=== PATIENT | male | born 1990 | race Hispanic/Latino ===

== ENCOUNTER 2019-04-30 04:36 | Inpatient (IN) | payer OTHER ==
[~2019-04-30] VITALS: Ht 188 cm; Wt 96.6 kg
--- NOTE | 2019-04-30 08:52 | NUR ---
MED REC COMPLETE
--- NOTE | 2019-04-30 10:44 | NUR ---
HAS COMPLETED HIBICLENS SHOWER AND IS HOOKED UP TO IVF. SIGINIFICANT OTHER AT BEDSIDE, BUT GONE NOW.
--- NOTE | 2019-04-30 11:00 | NUR ---
Spoke with Dre and Vielka. They live in [place]. Pt denies use of DME. Plans on dc to home after appy surgery and criteria is met with Vielka.
--- NOTE | 2019-04-30 12:04 | NUR ---
PATIENT DENIES PAIN. IVF INFUSING.
--- NOTE | 2019-04-30 13:28 | NUR ---
PT ALERT, ORIENTED AND SUPPORTED BY HIS SIG. OTHER. PT IS NPO, WAITING FOR LAP APPY LATER TODAY. FIRST SURGERY, HELPED PT UNDERSTAND WHAT HE COULD EXPECT. PT ACKNOWLEDGED, THANKED ME AND REQUESTED PRAYER. WILL FOLLOW NEEDED
--- NOTE | 2019-04-30 13:56 | NUR ---
PT IS OFF THE FLOOR TO SURGERY. FAMILY WENT WITH HIM TO DAY SURGERY WAITING AREA. IV OFF PUMP, PRE OP ABX HANGING WITH IVF. SCD SLEVES ON. PT VOIDED PRIOR TO LEAVING FLOOR. VITALS TAKEN.
--- NOTE | 2019-04-30 15:55 | NUR ---
04/30/19 1553 Praveen Flores REORIENTED PT TO TIME AND SITUATION. REPORTS 0/10 ABD PAIN
--- NOTE | 2019-04-30 16:51 | NUR ---
PT HAS RETURNED FROM SURGERY. ON CPOX PER POLICYHOLDER INFORMATION CLERK RECOMMENDATION. MAINTAINING LOW 90'S ON 2L. PT REPORTS MINIMAL PAIN 03/09. PT READY TO VOID. GAVE WATER AND JELLO.
--- NOTE | 2019-04-30 18:03 | NUR ---
PT REQUESTED PAIN MEDICATION. PAIN INCREASED LOCAL WORE OFF. TOLERATING JELLO WELL, VOIDING WELL. NO NAUSEA.
--- NOTE | 2019-04-30 19:27 | NUR ---
recieved report from day shift. pt in bed, was using urinal. needed some privacy. will be back for assessment.
--- NOTE | 2019-04-30 20:51 | NUR ---
PT IN BED, VSS, AFEBRILE. 2 OFF, SPO2 92% ON RA.
--- NOTE | 2019-04-30 21:30 | NUR ---
PT CALLED REQUESTED TO GET UP AND WALK TO BATHROOM. ASSIST, SBA, DENIED DIZZINESS WHEN UP, OR WHEN WALKING. USED URINAL, BRUSHED TEETH, WASHED FACE. BACK TO BED WITH SBA, TOLERATED WELL STATED HE FELT PRETTY GOOD GETTING UP AND WALKING. ASKED PT IF HE HAD A JOB THAT WOULD NEED A RELEASE FROM DUE TO SURGERY, STATED NO, HE IS MOVING TO [place] TO A JOB AND IT WILL BE AN OFFICE JOB. EDUCATED ABOUT THE CONCERNS WITH LIFING. STATED UNDERSTANDING. ALL PERSONAL ITEMS WITHIN REACH, CALL LIGHT. CPOX IN PLACE, 95 ON RA.
--- NOTE | 2019-04-30 22:23 | NUR ---
PT'S ASSESSMENT COMPLETE. DRESSING IS DRY, CLEAN, INTACT. PT REQUESTED TO TURN LIGHT OFF. REPORTED INCREASED PAIN WITH ACTIVITY. PRN TYLENOL WAS OFFERED BUT PT STATED HE CAN WAIT UNTIL MIDNIGHT.
--- NOTE | 2019-04-30 23:17 | NUR ---
EYES CLOSED, PT APPEARS ASLEEP. SPO2 92% ON RA.
--- NOTE | 2019-04-30 23:51 | NUR ---
PT REPORTED PAIN 10. SEE MAR FOR ADMINISTERED MEDICATION. JELLO WAS OFFERED, PT TOLERATED WELL. SPO2 94% ON RA.
--- NOTE | 2019-05-01 00:30 | NUR ---
PT RESTING IN BED WITH EYES CLOSED. APPEARS COMFORTABLE. SPO2 93% ON RA.
--- NOTE | 2019-05-01 02:51 | NUR ---
PT'S ASSESSMNET COMPLETE. PT STATED HIS PAIN IS 'NOT TOO BAD'. REFUSED TO TAKE ANALGETIC. VS WNL. AFEBRILE. RESTING WITH HIS EYES CLOSED.
--- NOTE | 2019-05-01 02:56 | NUR ---
PT AMBULATED TO THE BATHROOM. VOIDED WITHOUT DIFFICULTIES.
--- NOTE | 2019-05-01 03:03 | NUR ---
pt back in bed. ice pack provided. scds on. bed in low position, call light in reach.
--- NOTE | 2019-05-01 04:43 | NUR ---
PT ALERT, ORIENTED X4, COOPERATIVE WITH ALLCARES. REPORTED PAIN ONCE DURING THI SHIFT AFTER AMBULATING AROUND THE UNIT. SEE MAR FOR ADMINISTERED PRN MEDICATION. USED ICE PACK ALTERNATIVE FOR PAIN MANAGEMENT. PT MAINTAINES SPO2 93-95% ON RA, GOOD PROGRESS. VSS, AFEBRILE. DRESSINGS ARE DRY, CLEAN, INTACT. PT VOIDED WITHOUT DIFFICULTIES. TOLERATED JELLO WELL. CONTINUES D5LR 100ML/HOUR THROUGH RIGHT AC PERIPHERAL LINE WITH 20 GA. IV SITE WAS FLASHED WITH NC, PATENT. DRESSING INTACT. RESTING IN BED WITH EYES CLOSED, APPEARS ASLEEP AND COMFORTABLE. BED IN LOW POSITION, CALL LIGHT IN REACH.
--- NOTE | 2019-05-01 05:45 | OR ---
[facility] [address], [place] [address] Signed DATE OF OPERATION: 04/30/2019 SURGEON: Romy Bernal MD PREOPERATIVE DIAGNOSIS: Acute appendicitis. POSTOPERATIVE DIAGNOSIS: Acute suppurative appendicitis. PROCEDURE: Laparoscopic appendectomy. ESTIMATED BLOOD LOSS: None. INDICATIONS: Dre is a 28-year-old gentleman who for about half-a-day had left upper quadrant abdominal pain that then localized to the right lower quadrant. He finally came to emergency room because of the unrelenting pain. He was tender in the right lower quadrant with an elevated white blood cell count. CT scan confirmed appendicitis without abscess. He was given cefepime and Flagyl, IV fluids and some pain control. I was asked to admit him as a general surgeon on-call. I met with Dre and his girlfriend in the hospital. They have already been online reading and they are very familiar with the location and function of the appendix. We had discussed laparoscopic versus open appendectomy. We reviewed the expected intraop and postop course. We also reviewed risks including, but not limited to bleeding, infection, scarring, change in contour of the skin, damage to bowel, appendiceal stump leak, postoperative intraabdominal abscess, incisional hernias, and other unforeseen comorbidities. They had expressed understanding and wished to proceed. PROCEDURE NOTE: Dre was taken into our operating room and placed in supine position under general endotracheal tube anesthesia. He had gone to the bathroom just prior to going in the operating room. Therefore, no Perkins catheter was needed. He was already on preoperative antibiotics. He was given 5000 units of heparin subcu. SCDs were utilized. He was then prepped and draped in the usual sterile fashion. All trocars were placed in usual positions under direct visualization of camera without difficulty. The appendix was grasped and elevated in the right upper quadrant. The base of the appendix was cleared off and divided from the cecum with the help of a linear stapler. Electronically Signed By: ROMY BERNAL MD 05/01/19 0545 PATIENT NAME: DRE FORTUNE OPERATIVE REPORT DATE OF : 86 REPORT #: [id number] PHYSICIAN: ROMY BERNAL MD PCP: RUCHI MAIN PA-C REPORT IS CONFIDENTIAL AND NOT TO BE RELEASED WITHOUT AUTHORIZATION [facility] [address], [place] [address] Signed We used two vascular loads to divide the mesoappendix. There was some bleeding on two spots on the staple line on the mesoappendix and they were gently cauterized. After this, the right lower quadrant was irrigated and suctioned out until clear. No further bleeding noted. We then placed the appendix into an EndoCatch bag and took it out through the right subcostal trocar site. We used our laparoscopic suturing device to pass 0 Vicryl suture on either side of the fascia of the subxiphoid trocar site. This was tied down to close this fascia primarily. After this, all the gas was allowed to escape and all the remaining trocars were removed. We closed the fascia of the supraumbilical trocar site with interrupted [id number] and simple 0 Vicryl sutures. Local anesthetic was copiously injected into all trocar sites. The skin and dermis of each trocar site were closed with interrupted 3-0 subcuticular Monocryl sutures. Dry gauze and tape were applied to all incisions. Dre was awakened from anesthesia, extubated in the OR, and taken to recovery room in stable condition. Romy Bernal MD ALB/MODL /[id number] cc: MD Ruchi Sim PA Copies: ROMY BERNAL MD ~ Electronically Signed By: ROMY BERNAL MD 05/01/19 0545 PATIENT NAME: DRE FORTUNE OPERATIVE REPORT DATE OF : 86 REPORT #: [id number] PHYSICIAN: ROMY BERNAL MD PCP: RUCHI MAIN PA-C REPORT IS CONFIDENTIAL AND NOT TO BE RELEASED WITHOUT AUTHORIZATION
--- NOTE | 2019-05-01 05:45 | CONS ---
[facility] [address], [place] [address] Signed DATE OF CONSULTATION: 04/30/2019 CHIEF COMPLAINT: Right lower quadrant abdominal pain. HISTORY OF PRESENT ILLNESS: Dre is a 28-year-old young man, who is otherwise healthy. He is involved in our local drone industry. However, he is currently unemployed. He said he is headed for a job interview at the end of this week in [place]. Twelve or so hours ago, he started to develop left upper quadrant abdominal pain and it has worked its way down to the right lower quadrant. He has had nausea, but no vomiting. The pain was unrelenting, so he came to the emergency room for evaluation. He was tender in the right lower quadrant with an elevated white blood cell count. CT scan of abdomen and pelvis confirmed his thickened inflamed appendix without abscess or perforation. I was asked to admit him as a general surgeon on-call. In the meantime, he has received his cefepime and Flagyl along with some IV fluids and pain medication. He said overall he feels a little better. He is lime vat tender in the right lower quadrant. PAST MEDICAL HISTORY: Right 3rd metatarsal fracture. PAST SURGICAL HISTORY: Alsen teeth extraction without bleeding. SOCIAL HISTORY: He does not smoke. He has a drink up to four times a week. He has been with his lifelong partner. Ruchi Brown is his physician's engineer second assistant. He is currently unemployed but does drive. He prefers the [facility]. FAMILY HISTORY: Mom had diabetes and cervical cancer. Paternal grandmother had colon cancer and diabetes. He is unaware of his dad's history. REVIEW OF SYSTEMS: He had 10 systems reviewed. He talked to me about the foot fracture. ALLERGIES: None. MEDICATIONS: None. PHYSICAL EXAMINATION: Electronically Signed By: ROMY BERNAL MD 05/01/19 0545 PATIENT NAME: DRE FORTUNE CONSULTATION DATE OF : 86 REPORT #: [id number] PHYSICIAN: ROMY BERNAL MD PCP: RUCHI BROWN PA-C REPORT IS CONFIDENTIAL AND NOT TO BE RELEASED WITHOUT AUTHORIZATION [facility] [address], [place] [address] Signed VITAL SIGNS: Blood pressure is 119/73, heart rate 105, respiratory rate 18, temperature is 98.3, 96% on room air. He is 6 feet 2 inches tall at 96 kg. GENERAL: Dre is a 28-year-old gentleman who appears generally healthy and at his stated age. He appears alert, awake, and interactive. He does not appear systemically ill or toxic. His friend is with him in the room. LUNGS: Clear to auscultation. HEART: Regular rate and rhythm. ABDOMEN: Soft and flat, but he is tender in the right lower quadrant, just slightly below McBurney point. LABORATORY DATA: His white blood cell count is 13.6, hemoglobin 17, neutrophils 88, creatinine 1.12. Liver function test is negative. Lipase negative. Urine specific gravity negative. Albumin is 4.5. RADIOGRAPHIC STUDIES: A CT scan of the abdomen and pelvis is reviewed. You can see his inflamed thickened appendix in the right lower quadrant without abscess. ASSESSMENT AND PLAN: Dre is a 28-year-old gentleman who presents with acute appendicitis. They have already been online reading and they are very aware of the location and function of the appendix. We have discussed laparoscopic versus open appendectomy. We have discussed the expected intraop and postop course. There is risk to surgery including, but not limited to bleeding, infection, scarring, change in contour of the skin, damage to bowel, appendiceal stump leak, postoperative intraabdominal abscess, incisional hernias and other unforeseen comorbidities. They have expressed understanding and would like to proceed with surgery. Romy Bernal MD ALB/MODL /[id number] cc: MD Ruchi Sim PA Electronically Signed By: ROMY BERNAL MD 05/01/19 0545 PATIENT NAME: DRE FORTUNE CONSULTATION DATE OF : 86 REPORT #: [id number] PHYSICIAN: ROMY BERNAL MD PCP: RUCHI BROWN PA-C REPORT IS CONFIDENTIAL AND NOT TO BE RELEASED WITHOUT AUTHORIZATION [address] [place] [address] Signed Copies: ROMY BERNAL MD ~ Electronically Signed By: ROMY BERNAL MD 05/01/19 0545 PATIENT NAME: DRE FORTUNE CONSULTATION DATE OF : 86 REPORT #: [id number] PHYSICIAN: ROMY BERNAL MD PCP: RUCHI BROWN PA-C REPORT IS CONFIDENTIAL AND NOT TO BE RELEASED WITHOUT AUTHORIZATION
--- NOTE | 2019-05-01 06:09 | NUR ---
pt BACK IN BED AFTER VOID. RATES PAIN 6/10 IN ABDOMEN. STATES "I DON'T THINK JUST THE ONE PILL WORKED". PRN PAIN MEDICATIONS ADMINISTERED. VSS. IVF INFUSING WNL ORDERED. CALL LIGHT IN REACH. ICE PACK TO ABDOMEN. NO ADDITIONAL REQUESTS.
--- NOTE | 2019-05-01 07:16 | NUR ---
BEDSIDE REPORT FROM ATA CHO... PT SITTING UP IN BED ALERT, DISCUSSED PLAN OF CARE FOR THE DAY WITH PATIENT. HE RPORTS PAIN IS MANAGEABLE AT THIS TIME. NO CONCERNS OTHER THAN HOPEING TO DISCHARGE TODAY.
--- NOTE | 2019-05-01 08:12 | NUR ---
PATIENT AWAKE IN BED. DIET WAS SWITCHED TO FULL LIQUID SO WE ORDERED BREAKFAST. HE DOES NOT NEED ANYTHING ELSE AT THIS TIME. CALL LIGHT IN REACH.
--- NOTE | 2019-05-01 09:24 | NUR ---
PT REPORTS HIS PAIN IS VERY MILD 1-2/10 TOLERABLE AT THIS TIME AT REST. HE IS SITTING UP EATING FULL LIQUID DIET TOLERATING WELL NO NAUSEA. HE REQUESTED COFFEE. HIS ASSESSMENT IS WNL, SURGERY SITES X3 CDI. FRESH ICE PACK, AND COFFEE PROVIDED. PT VERBALIZED WANT TO DISCHARGE TODAY IF POSSIBLE. ADMINISTERED FLU QUAD VACINE WELL PER PT REQUEST.
--- NOTE | 2019-05-01 11:10 | NUR ---
Spoke with Stas, he is walking in his room and preparing to walk in the ch. States he thinks he gets to go home today. He is not sure as has not told him for sure yet. Denies needs or concerns.
--- NOTE | 2019-05-01 11:39 | NUR ---
CALLED TO REQUEST TO ADVANCE PT DIET, PT TOLERATING FULL LIQUID WELL, PASSING GAS AND AMBULATING HALLS. NEW ORDER FOR REGULAR DIET
--- NOTE | 2019-05-01 13:51 | NUR ---
CALLED TO UPDATE ON PT STATUS AND INFORM THAT PT IS ANTICIPATING DISCHARGE TODAY. HE GAVE ORDER TO DISCHARGE AND HE WILL SEND MEDICATIONS ELECTRONICALLY TO [facility]
--- NOTE | 2019-05-01 14:03 | NUR ---
DRESSINGS REMOVED X3. ALL INCISIONS WELL PROXIMATED, NO NEW DRAINAGE. NEW GAUZE PLACED LIGHTLY WITH SMALL AMOUNT OF FOAM TAPE. TO SEND RXD TO [facility].
--- NOTE | 2019-05-01 14:25 | NUR ---
PT READY FOR DC-WAITING FOR RIDE. FEELING MUCH BETTER, AND LOOKING FORWARD TO SLEEPING IN HIS BED TONIGHT. EXTENDED A BLESSING, WILL FOLLOW NEEDED
--- NOTE | 2019-05-01 14:40 | NUR ---
PT EDUCATIONS PROVIDED WITH DICHARGE PACKET. SIGNIFICANT OTHER IN ROOM FOR EDUCATION, KEEP INCISIONS CLEAN/DRY. OK TO SHOWER, NO LIFTING GREATER THAN 20LBS UNTIL FOLLOW UP WITH IN ONE WEEK. EDUCATIONS PROVIDED FOR NORCO LAST DOSE NEXT DOSE, SIDE EFFECTS, INSTRUCTED PT TO WALK AND DRINK WATER OFTEN TO PREVENT CONSTIPATION. PT GIVEN EXTRA GAUZE AND ICE PACK FOR HOME.
--- NOTE | 2019-05-02 15:10 | PATH ---
[facility] [address], [place] [address] Signed SPECIMEN(S): A APPENDIX SPECIMEN SOURCE: A. APPENDIX CLINICAL HISTORY: Acute appendicitis. FINAL PATHOLOGIC DIAGNOSIS: Appendix, appendectomy: - Acute appendicitis with periappendicitis. NAL:smn:C2NR MICROSCOPIC EXAMINATION: Histologic sections of all submitted blocks are examined by light microscopy. These findings, together with the gross examination, support the pathologic diagnosis. GROSS DESCRIPTION: The specimen, labeled "JG, appendix," per requisition, is received in formalin and consists of: Specimen: Appendix with mesoappendix. Dimensions: 11.0 x 2.6 x 1.9 cm. Serosa: Normal. Perforation: Not grossly identified. Inking: Staple line is inked black. Mucosa: Thickened, dilated towards proximal margin. Fecalith: Present with hemorrhagic material. Additional: None. Hvac Mechanical Engineer sections are submitted in cassette (A1). AT(under the direct supervision of a pathologist) The Gross Description was prepared using a voice recognition system. The report was reviewed for accuracy; however, sound-alike word errors, addition and/or deletions may occur. If there is any question about this report, please contact Client Services. PERFORMING LABORATORY: The technical component was performed by [facility], [address] [place] [id number] ([employer]: Sushma Arora MD; CLIA# [id number]). [facility], [address] [address] (CLIA# PATIENT NAME: LIBERTAD FORTUNE PATHOLOGY DATE OF : 86 REPORT #: [id number] PHYSICIAN: PRERNA PATHOLOGY PCP: MING MAIN PA-C REPORT IS CONFIDENTIAL AND NOT TO BE RELEASED WITHOUT AUTHORIZATION [facility] [address] [place] [id number] Signed [id number]). Diagnostician: Nelsy Coronel MD Pathologist Electronically Signed 05/02/2019 Copies: ~ PATIENT NAME: LIBERTAD FORTUNE PATHOLOGY DATE OF : 86 REPORT #: [id number] PHYSICIAN: PRERNA PATHOLOGY PCP: MING MAIN PA-C REPORT IS CONFIDENTIAL AND NOT TO BE RELEASED WITHOUT AUTHORIZATION
== END 2019-05-01 14:50 | disposition home or self-care (01) | DRG 343 ==
LOC: EDSEX 04:36 → ED 04:36 → MS 04:37
PROVIDERS: ADMIT Colon & Rectal Surgery
PROC: 0DTJ4ZZ Resection of Appendix, Percutaneous Endoscopic Approach (ICD-10-PCS; principal; 2019-04-30 17:00)
DX: K35.80 Unspecified acute appendicitis (principal)
CPT/HCPCS: 00840; 36415; 74177; 80048; 80053; 81001; 83690; 83735; 84100; 85025; 90688; 96361; 96368; 99285-25; G0378; J0692; J1100; J1170; J1644; J1885; J2405; J2704; J3010; J7030; J7060; J7121; Q9967